=== PATIENT | male | born 1985 | race African-American/Black ===

== ENCOUNTER 2018-12-26 01:27 | Emergency (ER) | payer MEDICAID ==
[~2018-12-26] VITALS: Ht 180.3 cm; Wt 63.0 kg
[2018-12-26] MEDS ORDERED: SODIUM CHLORIDE 0.9% 100 ML IV ONE (04:00)
[2018-12-26] MEDS ORDERED: LORAZEPAM 2MG/ML CPJ IV ONE (04:00)
[2018-12-26] MEDS ORDERED: SODIUM CHLORIDE 0.9% 1,000 ML IV ONE (04:15)
[2018-12-26 04:29] LABS: CHLORIDE 106 mEq/L (98-107)
[2018-12-26 04:30] LABS: BASOPHILS % 0.7 % (0.0-2.0); EOSINOPHILS % 0.7 % (0.0-5.0); HEMATOCRIT. 50.3 % (42.0-52.0); HEMOGLOBIN. 17.5 g/dL (14.0-18.0); LYMPHOCYTES % 46.3 % (20.0-50.0); MEAN CORPUSCULAR HEMOGLOBIN 31.3 pg (28.0-32.0); MEAN CORPUSCULAR VOLUME 89.7 fL (80.0-94.0); MEAN PLATELET VOLUME 8.9 fl (7.4-10.4); MONOCYTES % 6.8 % (2.0-8.0); NEUTROPHILS % 45.5 % (40.0-76.0); PLATELET 290 x1000/uL (130-400); RED CELL DISTRIBUTION WIDTH 15.7 % (11.6-14.6)
[2018-12-26 04:49] LABS: ETHANOL BLOOD 304 mg/dL
[2018-12-26 05:20] VITALS: BP 143/86
== END 2018-12-26 06:57 | disposition home or self-care (01) ==
LOC: ER 01:27
DX: F10.239 Alcohol dependence with withdrawal, unspecified (principal); I10 Essential (primary) hypertension; F12.10 Cannabis abuse, uncomplicated; F17.210 Nicotine dependence, cigarettes, uncomplicated; Y90.8 Blood alcohol level of 240 mg/100 ml or more
CPT/HCPCS: 36415; 80053; 80320; 85025; 96374; 99283; J2060; J7030; J7050; Z7610; G0480

== ENCOUNTER 2018-12-27 03:12 | Emergency (ER) | payer MEDICAID ==
[~2018-12-27] VITALS: Ht 175.3 cm; Wt 63.0 kg
[2018-12-27] MEDS ORDERED: CHLORDIAZEPOXIDE 25MG CAPSULE PO ONE (04:15)
[2018-12-27 05:49] VITALS: BP 139/79
== END 2018-12-27 06:00 | disposition home or self-care (01) ==
LOC: ER 03:12
DX: F10.229 Alcohol dependence with intoxication, unspecified (principal); I10 Essential (primary) hypertension; F17.210 Nicotine dependence, cigarettes, uncomplicated; Y90.9 Presence of alcohol in blood, level not specified; Z98.890 Other specified postprocedural states; Z86.19 Personal history of other infectious and parasitic diseases
CPT/HCPCS: 99283